=== PATIENT | male | born 1965 | race African-American/Black ===

== ENCOUNTER 2017-04-22 08:47 | Emergency (ER) | payer OTHER | END 2017-04-22 11:28 | disposition home or self-care (01) | LOC: E/R 08:47 | DX: S03.42XA Sprain of jaw, left side, initial encounter (principal); X58.XXXA Exposure to other specified factors, initial encounter; Y92.9 Unspecified place or not applicable | CPT/HCPCS: 99283; Z7502 ==

== ENCOUNTER 2017-10-03 10:04 | Emergency (ER) | payer OTHER ==
[2017-10-03] MEDS: predniSONE 20 MG TAB PO (10:32)
[2017-10-03] MEDS: DIPHENHYDRAMINE 50 MG INJ IM (10:33)
[2017-10-03] MEDS: FAMOTIDINE 20 MG TAB PO (10:33)
== END 2017-10-03 11:13 | disposition home or self-care (01) ==
LOC: FTE 10:04
DX: R21 Rash and other nonspecific skin eruption (principal)
CPT/HCPCS: 96372; 99284-25